=== PATIENT | female | born 1960 | race Caucasian/White ===

== ENCOUNTER 2024-03-20 15:08 | Outpatient (CLI) | payer MEDICARE ==
[2024-03-20 16:50] LABS: #Basophils 0.08 10x3/uL (0.0-0.2); %Basophils 0.8 % (0.0-1.0); %Eosinophils 2.7 % (0.0-10.0); %Lymphocytes 24.1 % (21.0-51.0); %Monocytes 10.4 % (0.0-10.0); %Neutrophils 61.7 % (42.0-75.0); Hematocrit 43.1 % (36.0-47.0); Hemoglobin 14.3 g/dL (12.0-16.0); Mean Corpuscular HGB CONC 33.2 g/dL (32.0-36.0); Mean Corpuscular Volume 90.5 fL (78.0-98.0); Mean Platelet Volume 9.8 fL (7.4-10.4); Platelet Count 312 10x3/uL (130-400); RBC Distribution Width 14.1 % (11.5-14.5); Red Blood Cell (RBC) Count 4.76 mill/uL (4.20-5.40)
[2024-03-20 17:00] LABS: Hemoglobin A1c 5.6 % (4.0-6.0)
[2024-03-20 17:01] LABS: ALT (SGPT) 43 U/L (8-55); AST (SGOT) 38 U/L (5-34); Albumin 4.2 g/dL (3.4-4.8); Alkaline Phosphatase 88 U/L (40-110); Anion Gap 14 mmol/L (10-20); BUN (Urea Nitrogen) 32 mg/dL (9.8-20.1); Bilirubin, Total 0.7 mg/dL (0.2-1.2); Calc. Creatinine Clearance 0 mL/min (70-130); Calcium 9.9 mg/dL (7.8-10.44); Carbon Dioxide 27 mmol/L (23-31); Chloride 102 mmol/L (98-107); Estimated GFR 63; Globulin 3.3 g/dL (2.4-3.5); Glucose 97 mg/dL (80-115); Protein, Total 7.5 g/dL (5.8-8.1); Sodium 139 mmol/L (136-145)
== END 2024-03-20 15:09 | disposition home or self-care (01) ==
LOC: LABBT 15:08
PROVIDERS: ATTEND Surgery
DX: Z01.818 Encounter for other preprocedural examination (principal); E66.01 Morbid (severe) obesity due to excess calories
CPT/HCPCS: 71046; 80053; 83036; 85025

== ENCOUNTER 2024-03-20 15:30 | Inpatient (IN) | payer MEDICARE ==
[2024-03-20 15:40] VITALS: BMI 40.6
[2024-03-28] MEDS ORDERED: Heparin 5,000 UNITS/ML VIAL ONE (06:33)
[2024-03-28] MEDS ORDERED: EPINEPHrine 1 MG/ML VIAL ONE (06:39)
[2024-03-28] MEDS ORDERED: Bupivacaine 0.25% HCL 30 ML VIAL ONE (06:40)
[2024-03-28] MEDS ORDERED: fentaNYL PF 100 MCG/2 ML SYRINGE ONE ×3 (06:58→10:09)
[2024-03-28] MEDS ORDERED: PROPOFOL 20 ML ONE ×2 (06:59→08:49)
[2024-03-28] MEDS ORDERED: MINERAL OIL/WHITE PETROLATUM 3.5 GM TUBE ONE (06:59)
[2024-03-28] MEDS ORDERED: Lidocaine 2% PF 5 ML VIAL ONE (06:59)
[2024-03-28] MEDS ORDERED: Rocuronium Bromide 10 MG/ML (10ML VIAL) ONE (06:59)
[2024-03-28] MEDS ORDERED: CEFAZOLIN 2 GM VIAL ONE (07:19)
[2024-03-28] MEDS ORDERED: Dexamethasone 4 mg/ml Vial ONE (07:43)
[2024-03-28] MEDS ORDERED: Ondansetron PF 4 MG/2 ML Vial ONE (07:43)
[2024-03-28] MEDS ORDERED: ePHEDrine Sulfate 50 MG/10 ML VIAL ONE (07:47)
[2024-03-28] MEDS ORDERED: SUGAMMADEX SODIUM 200 MG/2 ML VIAL ONE (07:50)
[2024-03-28] MEDS ORDERED: PHENYLEPHRINE-NS 100 MCG/ML 10 ML SYRINGE ONE (07:54)
[2024-03-28] MEDS ORDERED: Glycopyrrolate 0.2 MG/ML 5 ML SYRINGE ONE (08:00)
[2024-03-28] MEDS ORDERED: Glucagon 1 MG/ML KIT IM PRN (09:05)
[2024-03-28] MEDS ORDERED: Dextrose 50% Abboject 50 ML SYRINGE SLOW IVP PRN (09:05)
[2024-03-28] MEDS ORDERED: hydrALAZINE 20 MG/ML VIAL SLOW IVP PRN (09:05)
[2024-03-28] MEDS ORDERED: Ipratropium/Albuterol 3 ML NEB NEB PRN (09:05)
[2024-03-28] MEDS ORDERED: Ondansetron PF 4 MG/2 ML Vial IVP PRN ×2 (09:05→10:45)
[2024-03-28] MEDS ORDERED: Dextrose 5% in Water 1,000 ML IV PRN (09:05)
[2024-03-28] MEDS ORDERED: Promethazine HCl 25 MG/ML VIAL IM PRN (09:05)
[2024-03-28] MEDS ORDERED: diphenhydrAMINE 50 MG/ML VIAL IVP PRN (09:05)
[2024-03-28] MEDS ORDERED: Naloxone HCl 0.4 mg/ml Vial IV PRN (10:45)
[2024-03-28] MEDS ORDERED: diphenhydrAMINE 50 MG/ML VIAL IM/IV PRN (10:45)
[2024-03-28] MEDS ORDERED: diphenhydrAMINE 25 MG CAP PO PRN (10:45)
[2024-03-28] MEDS ORDERED: HYDROmorphone/PF 10 MG in Sodium Chloride 0.9% 99 ML IVPB PRN (10:45)
[2024-03-28] MEDS ORDERED: HYDROmorphone 0.5 MG/0.5 ML SYRINGE ONE (11:05)
[2024-03-28] MEDS: D5 1/2 NS w/20 mEq KCL 1,000 ML IV SCH (14:11)
[2024-03-28] MEDS: Ketorolac Tromethamine 30 MG (1 mL) VIAL IVP SCH (14:12)
[2024-03-28] MEDS: CEFAZOLIN 2 GM in Sodium Chloride 0.9% 100 ML IVPB SCH (17:38)
[2024-03-29 05:11] LABS: #Basophils Less than 0.03 10x3/uL (0.0-0.2); #Eosinophils Less than 0.03 10x3/uL (0.0-0.7); %Basophils 0.1 % (0.0-1.0); %Lymphocytes 7.5 % (21.0-51.0); Hematocrit 37.5 % (36.0-47.0); Hemoglobin 12.5 g/dL (12.0-16.0); Mean Corpuscular HGB CONC 33.3 g/dL (32.0-36.0); Mean Corpuscular Hemoglobin 30.6 pg (27.0-31.0); Mean Corpuscular Volume 91.7 fL (78.0-98.0); Mean Platelet Volume 9.9 fL (7.4-10.4); Platelet Count 255 10x3/uL (130-400); RBC Distribution Width 13.8 % (11.5-14.5); Red Blood Cell (RBC) Count 4.09 mill/uL (4.20-5.40)
[2024-03-29 05:38] LABS: Anion Gap 13 mmol/L (10-20); BUN (Urea Nitrogen) 29 mg/dL (9.8-20.1); Calc. Creatinine Clearance 98 mL/min (70-130); Calcium 8.4 mg/dL (7.8-10.44); Carbon Dioxide 23 mmol/L (23-31); Chloride 104 mmol/L (98-107); Estimated GFR 56; Glucose 162 mg/dL (80-115); Potassium 4.2 mmol/L (3.5-5.1); Sodium 136 mmol/L (136-145)
[2024-03-29] MEDS: Pantoprazole 40 MG VIAL IVP SCH (07:24)
[2024-03-29] MEDS: Hydrocodone-Acetamin 15 ML UDCUP PO PRN (08:58)
[2024-03-29] MEDS: Enoxaparin 40 MG (0.4 mL) SYRINGE SC SCH (08:58)
[2024-03-29 09:11] VITALS: BP 148/78; TEMP 97.2
== END 2024-03-29 10:04 | disposition home or self-care (01) | DRG 621 ==
LOC: SURG A 03-28 06:06 → SURG B 03-28 10:24
PROVIDERS: ADMIT Surgery; ATTEND Surgery
PROC: 0DB64Z3 Excision of Stomach, Percutaneous Endoscopic Approach, Vertical (ICD-10-PCS; principal; 2024-03-28)
DX: E66.01 Morbid (severe) obesity due to excess calories (principal); M19.90 Unspecified osteoarthritis, unspecified site; I10 Essential (primary) hypertension; G89.29 Other chronic pain; Z68.41 Body mass index [BMI] 40.0-44.9, adult; Z96.653 Presence of artificial knee joint, bilateral; Z90.710 Acquired absence of both cervix and uterus
CPT/HCPCS: 36415; 36416; 80048; 85025; 88307; 94760; C1889; J0171; J0665; J1100; J1644; J1650; J1885; J2405; J2704; J3480; S2900

== ENCOUNTER 2024-04-11 12:42 | Day surgery (SDC) | payer MEDICARE ==
[2024-04-11] MEDS ORDERED: Ondansetron PF 4 MG/2 ML Vial IVP PRN (12:53)
[2024-04-11] MEDS: Sodium Chloride 0.9% 1,000 ML IV SCH (13:12)
[2024-04-11 13:19] VITALS: BP 158/91; TEMP 98.1
[2024-04-11] MEDS: Multivitamins, Adult 10 ML, Thiamine HCl 100 MG in Sodium Chloride 0.9% 1,000 ML IV SCH (13:32)
== END 2024-04-11 15:39 | disposition home or self-care (01) ==
LOC: ONC/OP 12:42
PROVIDERS: ATTEND Surgery
DX: E86.0 Dehydration (principal)
CPT/HCPCS: 96360; 96361; J3411; J7030